=== PATIENT | female | born 1980 | race Two or more races ===

== ENCOUNTER → 2025-08-23 | Outpatient (CLI) | payer MEDICAID, SELFPAY ==
--- NOTE | 2025-08-23 14:45 | XR_ITS ---
EXAMINATION: Thoracic spine 3 views TECHNIQUE: AP lateral, lateral upper dorsal spine 3 views Date and time: August 23, 2025, 1455 hours INDICATIONS: Back pain beginning 2 years ago. FINDINGS: Moderate osteopenia Upper thoracic levoscoliosis 8 degrees No thoracic fracture Mild diffuse thoracic disc narrowing IMPRESSION: Mild diffuse thoracic degenerative disc disease
--- NOTE | 2025-08-23 14:45 | XR_ITS ---
Examination: Lumbar spine, 5 views Technique: Lumbar spine AP, lateral, coned lateral lower lumbar spine, bilateral obliques 5 views Exam date and time: August 23, 2025, 1500 hours INDICATIONS: Low back pain beginning 2 years ago. FINDINGS: Adequate alignment lumbar vertebral bodies. No lumbar fracture. Mild lumbar spondylosis. Mild diffuse lumbar degenerative disc disease IMPRESSION: Mild diffuse lumbar degenerative disc disease
--- NOTE | 2025-08-23 14:45 | XR_ITS ---
EXAMINATION: Cervical spine 3 views TECHNIQUE: AP, lateral, coned AP odontoid cervical spine 3 views Date and time: August 23, 2025, 1451 hours INDICATIONS: Patient fell 2 years ago with injury to the neck, neck pain FINDINGS: Satisfactory Can Line Examiner cervical vertebral bodies. No cervical fracture. Intact odontoid Moderate disc narrowing C5-C6 IMPRESSION: Moderate degenerative disc disease C5-C6
== END | disposition home or self-care (01) ==
DX: M50.322 Other cervical disc degeneration at C5-C6 level (principal); M51.34 Other intervertebral disc degeneration, thoracic region; M51.360 Other intervertebral disc degeneration, lumbar region with discogenic back pain only
CPT/HCPCS: 72040; 72072; 72110